=== PATIENT | male | born 1970 | race Two or more races ===

== ENCOUNTER 2020-11-17 16:02 | Emergency (ER) | payer OTHER ==
[~2020-11-17] VITALS: Ht 170.2 cm; Wt 95.3 kg
== END 2020-11-17 21:43 | disposition home or self-care (01) ==
LOC: ER 16:02
DX: R10.32 Left lower quadrant pain (principal)

== ENCOUNTER 2021-07-07 07:01 | Day surgery (SDC) | payer OTHER | END 2021-07-07 11:00 | disposition home or self-care (01) | LOC: AMB-ENDOS 07:01 | PROVIDERS: ATTEND Surgery | DX: D12.2 Benign neoplasm of ascending colon (principal); K64.8 Other hemorrhoids; Z20.822 Contact with and (suspected) exposure to COVID-19 ==